=== PATIENT | female | born 1950 ===

== ENCOUNTER 2019-10-09 11:40 | Emergency (ER) | payer OTHER ==
[~2019-10-09] VITALS: Ht 165.1 cm; Wt 63.5 kg
[2019-10-09] MEDS ORDERED: NEURONTIN300 MG PO (12:18)
[2019-10-09] MEDS ORDERED: AMITIZA8 MCG (12:18)
[2019-10-09] MEDS ORDERED: ZESTRIL30 MG (12:19)
[2019-10-09] MEDS ORDERED: PEPCID20 MG PO (12:19)
[2019-10-09] MEDS ORDERED: ZESTRIL5 MG (12:20)
== END 2019-10-09 14:30 | disposition home or self-care (01) ==
LOC: ER 11:40
DX: I16.1 Hypertensive emergency (principal); I10 Essential (primary) hypertension; F41.8 Other specified anxiety disorders; Z03.818 Encounter for observation for suspected exposure to other biological agents ruled out

== ENCOUNTER 2021-07-10 07:44 | Outpatient (CLI) | payer OTHER ==
[~2021-07-10 07:44] MED LIST: AMITIZA8 MCG; NEURONTIN300 MG PO; PEPCID20 MG PO; ZESTRIL30 MG; ZESTRIL5 MG
== END 2021-07-10 07:58 | disposition home or self-care (01) ==
LOC: TOM 07:44
PROVIDERS: ATTEND Internal Medicine Gastroenterology
DX: R10.30 Lower abdominal pain, unspecified (principal); K56.50 Intestinal adhesions [bands], unspecified as to partial versus complete obstruction

== ENCOUNTER 2023-08-11 08:18 | Outpatient (CLI) | payer OTHER | END 2023-08-11 08:22 | disposition home or self-care (01) | LOC: RX STUDY 08:18 | PROVIDERS: ATTEND Internal Medicine Gastroenterology | DX: R13.10 Dysphagia, unspecified (principal) ==